=== PATIENT | male | born 1955 | race Caucasian/White ===

== ENCOUNTER 2025-05-12 08:53 | Emergency (ER) | payer MEDICARE, OTHER, SELFPAY ==
[2025-05-12 08:58] VITALS: BP 159/82
--- NOTE | 2025-05-12 09:17 | ED.GENMED ---
History of Present Illness
General
Chief Complaint: Heart Rate Problem
Source: patient
Exam Limitations: none
Time Seen by Provider: 05/12/25 09:17
History of Present Illness
History of Present Illness:
69yoM with a history of hypertension not on medication, glaucoma, and remote history of non-Hodgkin's lymphoma/testicular cancer in remission presenting for possible atrial fibrillation. Patient reports feeling a strange sensation in his chest
overnight. He was unable to sleep well due to his symptoms. He woke up this morning feeling nauseous and unwell. He checked his FitBit which alerted that he had 4 episodes of afib overnight with heart rate around 170-180 range. No prior history
of atrial fibrillation. He reports feeling 'different' but denies any chest pain, shortness of breath, dizziness. His only medication his latanoprost drops which he uses for glaucoma. He was told that his blood pressure was high in the past which
he is controlling with diet/exercise. He walks about 15,000-20,000 steps a day and denies any chest pain with activity.
Phy Exam
General Physical Exam
General Presentation: well appearing and no apparent distress
General Skin: warm and dry
General Habitus: normal
General Mental: alert
ENT Exam
ENT Exam: normocephalic
Cardiovascular Exam
Cardiovascular Exam: no edema, no murmur, normal peripheral pulses (2+ radial pulses bilaterally) and bradycardia
Pulmonary Exam
Pulmonary Exam: lungs clear, no respiratory distress, no rales, no crackles, no rhonchi and no wheezing
Neurological Exam
Neurological Exam: alert
[place] Coma Scale
Eye Opening: Spontaneous
Verbal Response: Oriented
Motor Response: Obeys Commands
GCS Total Score: 15
Skin Exam
Skin Exam: normal color and warm/dry
Psychiatric Exam
Psychiatric Exam: normal mood/affect
Course
Orders/Labs/Results
Orders:
Orders
05/12/25 08:55
ECG [Electrocardiogram (*1)] Urgent
Reason for Study: Atrial Fibrillation
05/12/25 08:56
EKG- Treatment ONCE
05/12/25 09:29
Cardiac Monitoring- Treatment ONCE
05/12/25 09:47
Complete Blood Count/With Diff Urgent
Comprehensive Metabolic Panel Urgent
Magnesium Urgent
TSH Reflex To Free T4 Urgent
Troponin I Urgent
Abnormal Lab Results
05/12/25
09:47
Chloride 110 H mmol/L
(98-107)
BUN 22 H mg/dl
(9-20)
Glucose 111 H mg/dl
(70-99)
05/12/25 09:47
05/12/25 09:47
Vital Signs
Initial and Last Documented VS:
Initial Vital Signs
Temp Pulse Resp BP Pulse Ox
97.7 F 60 20 159/82 99
05/12/25 08:58 05/12/25 08:58 05/12/25 08:58 05/12/25 08:58 05/12/25 08:58
Last Documented Vital Signs
Temp Pulse Resp BP Pulse Ox
97.7 F 56 10 142/81 96
05/12/25 08:58 05/12/25 12:15 05/12/25 12:15 05/12/25 12:00 05/12/25 12:15
MDM/Problems Addressed
Differential Diagnosis Includes:
69yoM presenting after his smart watch alerted that he was in afib. [place] a strange feeling in his chest overnight. No CP/SOB. HR 60 on arrival and sinus bradycardia noted on the monitor. He is well appearing in no distress. Differential diagnosis
includes but is not limited to: atrial fibrillation, arrhythmia, thyroid dysfunction, electrolyte abnormality
Initial ED plan: Triage EKG shows sinus bradycardia without ectopy or evidence of heart block. Check cardiac labs, TSH, and magnesium.
*Pulse Oximetry
SaO2: 99
Oxygen Mode of Delivery: Room air
Patient hypoxic: no (99%)
*EKG
Interpreted by ED Provider?: Yes
EKG Intrepretation Date: 05/12/25
Heart Rate: 55
Rate: bradycardiac
Rhythm: sinus
[place]: normal axis
Interval: normal interval
QRS Pattern: normal QRS
Ischemia: no ischemia
*Critical Care Note
Total Time (30-74mins, 75-104mins- exclusive of procedures): Not Applicable
Update Note
Update Note:
Labs unremarkable including normal electrolytes, TSH, and troponin. Telemetry reviewed and patient remains in sinus rhythm throughout ED stay. Discussed case with cardiology. Since there is no rhythm strip to review from his smart watch to
clearly document afib, anticoagulation is not recommended at this time. Patient stable for discharge. He was given contact information for cardiology and advised to call today to schedule a f/u appointment. ED return precautions reviewed.
Patient and family in agreement with plan.
ED Attending Note
-
Portions of this chart may have been created with voice recognition software.� Occasional wrong word or��sound alike� substitutions may have occurred due to the inherent limitations of voice recognition software.
Discharge Plan
Departure
Patient Disposition: Home (Routine Discharge)
Date of Disposition: 05/12/25
Time of Disposition: 12:25
Patient with high blood pressure during this ER visit?: Yes
Discharge Problem:
Palpitations
Instructions: Palpitations (DC)
Prescriptions:
No Action
latanoprost 0.005 % Drops
1 drp OPHTHALMIC (EYE) HS
Referrals:
Julio Cesar Butler MD [Active, Cardiology]
Nate Schwab MD [Family Provider, Family Practice]
Activity Restrictions/Additional Instructions:
Please call today to schedule a follow-up with cardiology. Return to the ER with any new or worsening symptoms including chest pain, shortness of breath, or dizziness.
Interventions
Interventions:
*Risk Screen - Suicide Last Done: 05/12/25 08:58
*General Assessment Last Done: 05/12/25 08:58
*Neglect/Abuse Screening Last Done: 05/12/25 08:58
*ED- Fall Risk Assessment Last Done: 05/12/25 09:59
*ED COVID-19 Vaccine History Last Done: 05/12/25 09:59
*Nursing Disposition Last Done: 05/12/25 12:48
ED- Cardiac Assessment Last Done: 05/12/25 12:00
ED- Pulmonary Assessment Last Done: 05/12/25 12:00
Discharge Date and Time
Discharge Date/Time: 05/12/25 12:49
Print Language: SENEGALESE
[2025-05-12 09:58] LABS: Hematocrit 41.8 % (39.0-52.0); Hemoglobin 14.5 g/dL (13.0-18.0); Mean Corp Hgb Conc. 34.7 g/dL (33.0-37.0); Mean Corpuscular Volume 88.6 fL (80.0-94.0); Nucleated Red Blood Cells % 0 % (-); Platelet Count 192 10^3/uL (130-400); Red Cell Dist. Width 12.9 % (11.5-14.5)
[2025-05-12 09:59] VITALS: BMI 31.3
[2025-05-12 10:00] VITALS: BP 147/85
[2025-05-12 10:23] LABS: ALT (SGPT) 26 U/L (0-50); AST (SGOT) 35 U/L (17-59); Albumin 4.2 g/dl (3.5-5.0); Alkaline Phosphatase 65 U/L (38-126); Blood Urea Nitrogen 22 mg/dl (9-20); Calcium 9.0 mg/dl (8.4-10.2); Carbon Dioxide 25 mmol/L (22-30); Chloride 110 mmol/L (98-107); Estimated Creatinine Clearance 86 ml/min; Glucose 111 mg/dl (70-99); Magnesium 2.1 mg/dl (1.6-2.3); Potassium 4.8 mmol/L (3.5-5.1); Sodium 140 mmol/L (135-145); Total Protein 6.4 g/dl (6.3-8.2); eGFR > 60.00
[2025-05-12 10:24] LABS: Troponin I < 0.012 ng/ml
[2025-05-12 11:00] VITALS: BP 140/85
[2025-05-12 12:00] VITALS: BP 142/81
== END 2025-05-12 12:49 | disposition home or self-care (01) ==
LOC: EMR 08:53
PROVIDERS: Physician Assistant; EMERGENCY PHYSICIAN Emergency Medicine; FAMILY PHYSICIAN Family Medicine
DX: R00.2 Palpitations (principal); I10 Essential (primary) hypertension
CPT/HCPCS: 99284; 80053; 83735; 84443; 84484; 85025; 93005

== ENCOUNTER → 2025-09-04 07:05 | Outpatient (REF) | payer MEDICARE, OTHER, SELFPAY | LOC: HWRCS 07:05 | PROVIDERS: ATTENDING PHYSICIAN Internal Medicine Cardiovascular Disease; FAMILY PHYSICIAN Family Medicine | DX: R06.09 Other forms of dyspnea (principal) | CPT/HCPCS: 93306 ==